=== PATIENT | female | born 1965 | race Caucasian/White ===

== ENCOUNTER 2017-05-03 07:39 | Day surgery (SDC) | payer OTHER ==
[2017-05-03] MEDS: INSULIN ASPART [NOVOLOG] 3 ML PEN SC (09:32)
[2017-05-03] MEDS: SOD CHLORIDE 0.9% 1,000 ML IV (09:36)
[2017-05-03] MEDS: FENTAnyl 50 MCG/ML VIAL ×3 (11:00→11:40)
[2017-05-03] MEDS: POLYMYXIN/BACITRACIN 1L IRRIG IRR (11:00)
[2017-05-03] MEDS: CEFAZOLIN 1 GM/50 ML (PMX) 50 ML IVPB (11:00)
[2017-05-03] MEDS: SOD CHLORIDE 0.9% 500 ML (11:30)
[2017-05-03] MEDS: MIDAZOLAM 1 MG/ML 2 ML INJ ×3 (11:30→11:40)
[2017-05-03] MEDS: LIDOCAINE 1%/EPI 30 ML INJ (11:30)
[2017-05-03] MEDS: HEPARIN 1000 UNITS/ML 10 ML INJ (11:50)
[2017-05-03] MEDS: OXYCODONE/ACETAMINOPHEN (10/325) TAB PO (15:05)
== END 2017-05-03 15:20 | disposition home or self-care (01) ==
LOC: SDS 07:39
DX: C50.912 Malignant neoplasm of unspecified site of left female breast (principal)
CPT/HCPCS: 36561; 76942; 82962